=== PATIENT | female | born 1960 | race Caucasian/White ===

== ENCOUNTER 2024-08-06 12:05 | Day surgery (SDC) | payer OTHER ==
[2024-08-06] VITALS (15 sets, daily range): BP systolic 115–160; BP diastolic 54–90
[~2024-08-06 12:05] MED LIST: CIPRO500 MG PO; FLUC200 PO; Flomax0.4 MG PO; HORMONE REPLACEMENT; OMEP20ER PO; PREVAGEN PO; Roxicodone5 MG PO; Zofran Odt4 MG SL
[2024-08-06] MEDS ORDERED: CeFAZolin Sodium 2,000 MG in NS 100 ML IV SCH (12:15)
[2024-08-06] MEDS ORDERED: Lactated Ringer's 1,000 ML IV SCH ×2 (12:15→15:30)
[2024-08-06] MEDS ORDERED: Bupivacaine 0.5% W/EPI 1:200000 SDV 30 ML Vial ONE (13:56)
[2024-08-06] MEDS ORDERED: Lidocaine 1%-Epineph 1:200000 30 ML SDV ONE (13:57)
--- NOTE | 2024-08-06 14:03 | NUR ---
PT AMBULATED TO RESTROOM INDEPENDENTLY. PLACED BACK IN BED WITH CALL LIGHT IN REACH. SPOUSE AT BEDSIDE.
[2024-08-06] MEDS ORDERED: Ibuprofen 400 MG Tab PO PRN (15:25)
[2024-08-06] MEDS ORDERED: Acetaminophen 325 MG TABLET PO PRN (15:25)
[2024-08-06] MEDS ORDERED: HYDROmorphone HCl/Pf 1MG SYR IV PRN (15:25)
[2024-08-06] MEDS ORDERED: DiphenhydrAMINE HCL 25 MG Cap PO PRN (15:25)
[2024-08-06] MEDS ORDERED: Ondansetron HCl 2 MG / ML 2ML Vial IV PRN (15:30)
[2024-08-06] MEDS ORDERED: Ondansetron 4 MG TAB PO PRN (15:30)
[2024-08-06] MEDS ORDERED: Metoclopramide HCl 10 MG Tab PO PRN (15:30)
[2024-08-06] MEDS ORDERED: OxyCODONE HCL 5 MG TAB PO PRN (15:30)
[2024-08-06] MEDS ORDERED: FLU VACC TS2024-25(6MOS UP)/PF 45 MCG/0.5 ML SYRINGE IM SCH (15:30)
[2024-08-06] MEDS ORDERED: Metoclopramide HCl 5MG / ML 2ML Vial IV PRN (15:30)
[2024-08-06] MEDS ORDERED: Simethicone 80 MG Chew PO PRN (15:30)
[2024-08-06] MEDS ORDERED: Ketorolac Tromethamine 30mg Vial IV PRN (15:35)
[2024-08-06] MEDS ORDERED: Ketorolac Tromethamine 30mg Vial ONE (15:40)
--- NOTE | 2024-08-06 16:25 | NUR ---
PT ARRIVED TO ROOM 227 FROM PACU AT APPROXIMATEY 1605. PT ALERT/ORIENTED UPON ARRIVAL TO THE ROOM. SHE RATES HER PAIN AT 2/10. PT HAS SCANT BLEEDING ON HER PARVIZ PAD. PT EDUCATED TO USE HER CALL LIGHT, SHE VERBALIZED UNDERSTANDING.
--- NOTE | 2024-08-06 19:56 | NUR ---
SHIFT SUMMARY PT IS POD#0. PT HAS HAD MINIMAL POST OP PAIN. SCANT VAGINAL BLEEDING. PT TOLERATING PO. EUCEDA CATH REMAINS IN PLACE, NOC RN NOTIFIED OF NEED FOR PT TO AMBULATE SO CATHETER CAN BE REMOVED. BEDSIDE REPORT GIVEN TO CHELSEA RN. PT USES CALL LIGHT APPROPRIATELY.
[2024-08-07 03:52] VITALS: BP 115/66
[2024-08-07] MEDS ORDERED: Omeprazole 20 MG CapCR PO SCH (06:00)
--- NOTE | 2024-08-07 06:16 | NUR ---
SUMMARY VOIDING WITH MINIMAL RESIDUAL, NOT REQUIRING PAIN MEDS.
[2024-08-07 07:14] VITALS: BP 134/85
[2024-08-07] MEDS ORDERED: ACET325 PO (09:56)
[2024-08-07] MEDS ORDERED: OXYC5 PO (09:57)
[2024-08-07] MEDS ORDERED: IBUP400 PO (09:57)
[2024-08-07 10:51] VITALS: BP 130/77
--- NOTE | 2024-08-07 11:46 | NUR ---
DISCHARGE PT PROVIDED WITH WRITTEN AND VERBAL DISCHARGE INSTRUCTIONS; SHE REPORTED UNDERSTANDING. PT STATES SHE HAS ALREADY OBTAINED HER PRESCRIPTION AND THEY ARE AT HOME. PAIN MANAGED PRIOR TO DISCHARGE, SHE HAS BEEN ABLE TO AMBULATE, VOID AND TOLERATE PO. PT ASSISTED OUT IN W/C AT APPROXIMATELY 1120.
== END 2024-08-07 11:22 | disposition home or self-care (01) ==
LOC: ORSCMMR 12:05 → ORD 13:15 → SURS 16:10 → ORSCMMR 23:00 → SURS 23:00 → ORSCMMR 08-07 11:22
PROVIDERS: Obstetrics & Gynecology
PROC: 0JQC0ZZ Repair Pelvic Region Subcutaneous Tissue and Fascia, Open Approach (ICD-10-PCS; principal; 2024-08-06 13:15)
DX: N81.89 Other female genital prolapse (principal); N81.10 Cystocele, unspecified; N81.6 Rectocele; Z90.710 Acquired absence of both cervix and uterus; K21.9 Gastro-esophageal reflux disease without esophagitis; Z79.899 Other long term (current) drug therapy
CPT/HCPCS: A9270; J0690; J1885; J7120